=== PATIENT | male | born 1935 | race Caucasian/White ===

== ENCOUNTER 2025-06-20 10:30 | Inpatient (IN) ==
--- NOTE | 2025-06-20 11:12 | Emergency Department Note ---
Impression & Plan Fall, Elevated troponin, Atrial fibrillation ED Provider Note CHIEF COMPLAINT: Fall with head strike HISTORY OF PRESENTING ILLNESS: Patient is an 89-year-old male presents the emergency department today for complaints of fall with head strike. He states he was in the shower this morning when he bent over to sisal picker a washcloth and his feet slipped out from behind him. He fell forward hitting his head on the wall and landing onto his knees. He was unfortunately unable to get himself up by himself and his son had to come over to assist him. At that time he was able to get up and ambulate. His current complaints are pain at the site of impact on the forehead, and lumbar back pain. He rates his pain as a 3/10. He does have a significant history of osteoporosis, orthopedic injuries and replacements, surgeries. He also has a history of A-fib and is on Eliquis and metoprolol, hypertension, hyperlipidemia, BPH. He denies loss of consciousness, lightheadedness, dizziness, blurred vision, headache. However is unsure if lightheadedness was involved when he fell. He denies any numbness or tingling in any of the 4 extremities. He denies chest pain, sob, breathing difficulties, abdominal pain, headache, fevers/chills, blood in stool or urine. REVIEW OF SYSTEMS: See HPI for pertinent positives and pertinent negatives. ALLERGIES: See below MEDICATIONS: See below PAST MEDICAL HISTORY: See below PHYSICAL EXAM: VITALS: Vitals are noted on the nurse's note and reviewed by myself. GENERAL: No acute distress, non-diaphoretic. SKIN: There is some minor bruising beginning to the patient's forehead and right cheek. There is an abrasion to the right knee. Capillary reflex less than 2 seconds. HEAD: Normocephalic. No scalp tenderness or step-offs felt. EARS: Bilateral external auditory canals clear without tragus tenderness. Bilateral tympanic membranes pearly [place] without erythema or effusion. No mastoid tenderness bilaterally. No hemotympanum. No pan sign. EYES: Pupils equal round and reactive to light and accommodation. Conjunctivae without injection, sclerae without icterus. Extraocular movements intact. No nystagmus. NOSE: Patent without discharge. No sinus tenderness. No septal hematoma or bleeding. FACE: No facial bone tenderness. Full range of motion of the jaw without tenderness. MOUTH: Mucous membranes moist. Pharynx without erythema or exudate. Uvula midline. Airway patent. Tongue does not deviate. NECK: Supple without nuchal rigidity. Cervical spine is nontender. Full range of motion of the neck without tenderness. HEART: Regular rate and rhythm without murmurs gallops or rubs. LUNGS: Clear to auscultation bilaterally without wheezes, rales or rhonchi. No retractions or accessory muscle use. CHEST: No chest wall tenderness. ABDOMEN: Positive bowel sounds x 4. Normal tympanic percussion. Soft, nontender, without masses or organomegaly. No guarding or rebound tenderness. MUSCULOSKELETAL: No tenderness of the thoracic spine. Mild tenderness to the lumbar spine on the right side on palpation. No tenderness with pelvic rocking. Full range of motion without tenderness to palpation in all extremities. Normal gait. Strength 5/5 throughout. Peripheral pulses 2+. NEURO: Patient was alert and oriented to person place and time. Normal mental status exam. Normal sensation to light and sharp touch. No focal neurological deficits. DIFFERENTIAL DIAGNOSIS: Fracture, subdural hematoma, facial bone fracture, lumbar back injury, lumbar vertebral fracture, among others. ED COURSE AND MEDICAL DECISION MAKING: HISTORY FROM INDEPENDENT HISTORIAN: History was provided by the patient and his son who is at bedside. MONITOR: Continuous quality assurance monitor body: Order was placed for continuous quality assurance monitor body. Patient was placed on the quality assurance monitor body and continuous pulse ox. Patient was noted to be in normal sinus rhythm at an initial rate of 62 bpm per my interpretation. EKG: First EKG at 1211 was interpreted by myself as normal sinus rhythm at a rate of 68 bpm. Second EKG at 1430 showed sinus rhythm with PACs with a rate of 73 bpm. INTERPRETATION OF LABS: I interpreted the labs with full lab results as below in the lab section of this note. Laboratory results pertinent to the emergent complaint are discussed in the MDM section below. The patient was advised to follow up with their PCP and/or specialist(s) for further outpatient monitoring and management of any abnormal results. INTERPRETATION OF IMAGING: Imaging studies were interpreted by myself and read by radiology as per the imaging section of this note. The patient was advised to follow up with their PCP and/or specialist(s) for further outpatient management of any non-emergent abnormal findings. CHRONIC MEDICAL/SOCIAL CONDITIONS AFFECTING CARE: No social concerns were identified as barriers to patients care. EXTERNAL RECORDS REVIEWED: Patient's previous ED records from 01/21/2025 specifically concerning a previous fall. Able to obtain an accurate history and medication list on the patient via previous record. ESCALATION OF CARE CONSIDERED: I considered admission on this patient due to his elevating troponins. CONSULTATIONS: I had a meaningful discussion about this patient with Dr. Motta who agrees with my assessment and the treatment plan. I consulted with cardiology Dr. Reilly and discussed the patient's case. He will plan to see him as an inpatient once admitted. I also consulted with Michelle Hodges and Dr. Caldwell for admission to the hospital. The patient was accepted for admission. SUMMARY: I examined the patient for complaints of a fall with head strike and lumbar back pain. A physical exam and history were performed. Nursing notes, EMR, and medication list were personally reviewed. CBC showed no leukocytosis. Mild anemia of 11.3. No thrombocytopenia. CMP showed no emergent findings. First troponin was 107.6 and second troponin was 279.8. The patient continued to decline any chest pain, shortness of breath, lightheadedness, syncope, headaches, arm numbness or tingling, jaw pain, shoulder pain aside from his normal. CT of the head and facial bones showed no fractures or intracranial abnormalities. X-ray of the lumbar spine showed no acute findings. Chest x- ray showed cardiomegaly with pulmonary vascular congestion. The patient declined any pain medication here in the emergency department originally however when he got back from his lumbar x-ray he did have increased pain to the lumbar region. He was given 1 g of Tylenol IV with improvement in pain and discomfort. I did consult with Dr. Cole from cardiology about the patient's case. I then spoke with Michelle Hodges and Dr. Caldwell for admission to the hospital. I discussed the plan of care with both the patient and his son who both verbalized understanding. They were made aware of all the above results. DIAGNOSIS: Elevated troponins, fall with head strike, atrial fibrillation TREATMENT PLAN/DISCHARGE INSTRUCTIONS: Admit to hospitalist services Past Med/Surg History Problem List (Updated 06/20/25 @ 16:07 by SARA Pineda) Atrial fibrillation (Acute) Elevated troponin (Acute) Fall (Acute) COVID-19 (Acute) Social History Smoking Status: Never smoker Preferred Language: Cameroonian Feels Safe at Home: Yes Allergies Allergies Allergy/AdvReac Type Severity Reaction Status Date / Time No Known Allergies Allergy Verified 07/23/23 21:22 Home Meds Home Medications Medication Instructions Recorded Confirmed aspirin 81 mg tablet,delayed 81 mg PO DAILY 07/23/23 06/20/25 release atorvastatin 20 mg tablet 20 mg PO DAILY 07/23/23 06/20/25 cholecalciferol (vitamin D3) 25 25 mcg PO DAILY 07/23/23 06/20/25 mcg (1,000 unit) capsule (Vitamin D3) duloxetine 30 mg capsule,delayed 0 mg PO DAILY 07/23/23 06/20/25 release metoprolol succinate 25 mg 12.5 mg PO DAILY 07/23/23 06/20/25 tablet,extended release 24 hr pregabalin 25 mg capsule (Lyrica) 0 mg PO HS 07/23/23 06/20/25 tamsulosin 0.4 mg capsule (Flomax) 0 mg PO DAILY 07/23/23 06/20/25 vit C 250 mg-vit E 90 mg-zinc 40 1 tab PO QAM 07/23/23 06/20/25 mg-copper 1 [id number] capsule (PreserVision AREDS-2) apixaban 5 mg tablet (Eliquis) 5 mg PO BID 06/20/25 06/20/25 finasteride 5 mg tablet 5 mg PO DAILY 06/20/25 06/20/25 Results & Data (ED) Vital Signs Vital Signs - 24 hr 06/20/25 10:45 06/20/25 11:29 06/20/25 12:22 Temperature 36.9 C 36.8 C Temperature Source Temporal Artery Scan Oral Pulse Rate 70 66 Pulse Rate [Apical] 69 Respiratory Rate 18 16 Respiratory Effort / Characteristics Non-Labored Spontaneous Respiratory Depth Normal Respiratory Pattern Regular Blood Pressure 118/51 L Blood Pressure [Left Arm] 129/56 L Blood Pressure Mean 73 Blood Pressure Mean [Left Arm] 80 Blood Pressure Position [Left Arm] Pulse Oximetry 96 94 Oxygen Delivery Method Room Air Room Air Sepsis Recent Fever Within 48 Hours No Sepsis New/Unexplained Change in Mental Status N/A Sepsis Action Taken by Nursing No Action Required 06/20/25 13:00 06/20/25 14:00 06/20/25 15:00 Temperature Temperature Source Pulse Rate Pulse Rate [Apical] 61 69 68 Respiratory Rate 17 16 22 Respiratory Effort / Characteristics Respiratory Depth Normal Normal Normal Respiratory Pattern Blood Pressure Blood Pressure [Left Arm] 113/86 137/58 L 127/75 Blood Pressure Mean Blood Pressure Mean [Left Arm] 95 84 92 Blood Pressure Position [Left Arm] Lying Pulse Oximetry 94 94 96 Oxygen Delivery Method Room Air Room Air Room Air Sepsis Recent Fever Within 48 Hours Sepsis New/Unexplained Change in Mental Status Sepsis Action Taken by Nursing Laboratory Data 06/20/25 11:30 06/20/25 11:30 Lab Results 06/20/25 06/20/25 Range/Units 11:30 13:23 WBC 7.56 (4.8-10.8) K/ul RBC 3.92 L (4.70-6.10) M/uL Hgb 11.6 L (14.0-18.0) g/dl Hct 37.0 L (42.0-52.0) % MCV 94.4 (80.0-100.0) fL MCH 29.6 (25.0-34.0) pg MCHC 31.4 L (32.0-36.0) g/dL RDW Std Deviation 49.0 H (36.4-46.3) fL RDW Coeff of Manas 14.2 (11.5-14.5) % Plt Count 147 (130-400) K/uL MPV 11.0 (9.4-12.4) fL Immature Gran % (Auto) 0.4 % Neut % (Auto) 72.2 % Lymph % (Auto) 15.2 % [place] % (Auto) 9.1 % Eos % (Auto) 2.4 % Baso % (Auto) 0.7 % Neut # (Auto) 5.46 (1.40-6.50) K/uL Lymph # (Auto) 1.15 L (1.20-3.40) K/uL [place] # (Auto) 0.69 H (0.11-0.59) K/uL Eos # (Auto) 0.18 (0.00-0.50) K/uL Baso # (Auto) 0.05 (0.00-0.20) K/uL Immature Gran # (Auto) 0.03 (0.01-0.20) K/uL PT 12.7 H (9.0-12.0) Seconds INR 1.2 H (0.9-1.1) APTT 26 (21-31) Seconds PTT Ratio 1.0 Sodium 140 (136-145) mmol/L Potassium 4.7 (3.5-5.1) mmol/L Chloride 106 (98-107) mmol/L Carbon Dioxide 28 (21-32) mmol/L Anion Gap 6 (3-11) BUN 18 (6-23) mg/dl Creatinine 1.06 (0.6-1.4) mg/dl Est Cr Clr Drug Dosing 51.8 ml/min eGFR 67.08 BUN/Creatinine Ratio 17.0 (10-20) Glucose 107 H (70-99(Fasting)) mg/dl Calcium 9.2 (8.6-10.3) mg/dl Total Bilirubin 0.6 (0.2-1.0) mg/dl AST 21 (13-39) U/L ALT 14 (7-52) U/L Alkaline Phosphatase 73 (34-104) U/L Total Creatine Kinase 126 (30-223) U/L Troponin I High Sens 107.6 H* 279.8 H* D (0-20) pg/ml B-Natriuretic Peptide 62 (0-100) pg/ml Total Protein 6.4 (6.0-8.3) gm/dl Albumin 3.6 (3.4-5.0) gm/dl Globulin 2.8 (2.5-4.0) gm/dl Albumin/Globulin Ratio 1.3 (0.9-2) Administered Medications Discontinued Medications Acetaminophen (Ofirmev) 1,000 mg in 100 mls @ 400 mls/hr IV NOW STA Stop: 06/20/25 13:44 Last Infusion: 06/20/25 14:30 Dose: Infused Documented By: Admin: 06/20/25 13:37 Dose: 400 mls/hr Documented By: KAYLEEN Imaging Data Radiologist's Impression: Face CT 06/20/25 11:38 CT SCAN OF THE FACIAL BONES WITHOUT IV CONTRAST CLINICAL HISTORY: Fall. COMPARISON STUDY: Facial bone CT dated 01/21/2025. TECHNIQUE: High-resolution CT scan of the facial bones is performed. Images are reviewed in the axial, sagittal, and coronal planes. IV contrast was not administered for this examination. A dose lowering technique was utilized adhering to the principles of ALARA. CT DOSE: 912.71 mGy.cm FINDINGS: The skeletal structures are osteopenic. There is chronic appearing deformity of the nasal bones. There is no evidence of acute facial bone fracture. The bony orbits are intact and the orbital contents are within normal limits noting bilateral ocular lens implants. The zygomatic arches, nasal bones, and pterygoid plates are preserved. The maxilla and mandible are intact. There are no layering blood products within the paranasal sinuses. There is trace mucosal thickening within the maxillary antra comment a less than sinus, and frontal sinuses. Mild mucosal thickening is noted within the ethmoid and right sphenoid sinuses. There is trace right mastoid effusion. The left mastoid air cells are well pneumatized. The visualized calvarium and upper cervical spine are maintained. Spondylotic change is noted throughout the imaged cervical spine. Partially imaged brain parenchyma is within normal limits. There is atherosclerotic calcification of the carotid bulbs. IMPRESSION: There is no evidence of facial bone fracture. ACT 112: Negative or not required by law. Electronically signed by: Peyman Wilcox M.D. 06/20/2025 12:[address] 06/20/25 11:38 CT SCAN OF THE BRAIN WITHOUT IV CONTRAST CLINICAL HISTORY: Fall COMPARISON STUDY: CT of the brain dated 01/21/2025 TECHNIQUE: Unenhanced axial CT scan of the brain is performed from the vertex to the skull base. Images are reviewed in the axial, sagittal, coronal planes. A dose lowering technique was utilized adhering to the principles of ALARA. FINDINGS: Brain parenchyma: There is age-related involutional change noting mild subcortical and periventricular microangiopathic disease. There is no hemorrhage, mass effect, or evidence of acute territorial ischemia by CT criteria. [place]-white matter differentiation is preserved. No extra-axial fluid collection is seen. Ventricles, sulci, cisterns: Prominent secondary to involutional change. Intracranial vasculature: There is atherosclerotic calcification of the cavernous carotid arteries. Calvarium: Unremarkable. Sinuses and mastoids: There is mild mucosal thickening within the sphenoid and ethmoid sinuses. Trace mucosal thickening is noted in the frontal sinuses. There is a small right mastoid effusion. The left mastoid air cells are well pneumatized. Orbits: The bony orbits are grossly intact. There are bilateral ocular lens implants. IMPRESSION: There is no hemorrhage, mass effect, or evidence of acute territorial ischemia by CT criteria. ACT 112: Negative or not required by law. Electronically signed by: Peyman Wilcox M.D. 06/20/2025 12:21 PM Lumbar Spine X-Ray 06/20/25 11:38 LUMBAR SPINE 3 VIEWS CLINICAL HISTORY: Fall. Low back pain. FINDINGS: 3 views of the lumbar spine are obtained. No prior studies are available for comparison at the time of dictation. The skeletal structures are osteopenic. There is no radiographic evidence of fracture or malalignment. Vertebral body height is maintained. There is a 14 mm of anterolisthesis at L4- L5. Alignment is otherwise preserved. Large anterior and lateral marginal osteophytes are seen throughout. There is straightening of the lumbar lordosis. The transverse and spinous processes are intact. Advanced facet arthropathies in the mid to lower lumbar region. There is moderate to severe disc space narrowing at L1-L2, L2-L3, and L3-L4. Large posterior disc osteophyte complexes are seen at these levels. Significant endplate sclerosis is seen at L1-L2 and L3-L4. The visualized bony pelvis appears intact. Degenerative sclerosis is seen in the sacroiliac joints. There is a nonobstructed abdominal bowel gas pattern. There is a prostatic calcification and ectasia of the abdominal aorta. Cholecystectomy clips are noted in the right upper quadrant. There are also clips in the right lower quadrant. IMPRESSION: 1. There is no radiographic evidence of fracture or malalignment involving the lumbar spine. 2. Osteopenia and spondylotic change as above. ACT 112: Negative or not required by law. Electronically signed by: Peyman Wilcox M.D. 06/20/2025 12:55 PM Chest X-Ray 06/20/25 12:30 SINGLE VIEW CHEST CLINICAL HISTORY: Chest pain. FINDINGS: An AP, portable, upright chest radiograph is compared to study dated 07/23/2023. The heart is enlarged and atherosclerotic calcification of the thoracic aortic. There is pulmonary gastric congestion. Atelectasis is noted at the lung bases. No large pleural effusion or pneumothorax is seen. The skeletal structures are osteopenic. The bony thorax is grossly intact. Advanced arthritic change is noted in the shoulders, right side greater than left. Calcified joint bodies are noted on the right. IMPRESSION: Cardiomegaly with pulmonary vascular congestion. Radiographic follow-up to resolution is recommended. ACT 112: Negative or not required by law. Electronically signed by: Peyman Wilcox M.D. 06/20/2025 12:57 PM Discharge Plan Visit Data Chief Complaint: Fall Stated Complaint: FALL/ HIT HEAD ED Provider: Argelia Motta ED Midlevel Provider: Ayana Lopez Discharge Problem: Fall, Elevated troponin, Atrial fibrillation Patient Disposition: Admitted As Inpatient Condition: Good Forms Stand Alone Forms: My [facility] Prescriptions Prescriptions: No Action atorvastatin 20 mg Tablet 20 mg PO DAILY aspirin 81 mg Tablet,Delayed Release (Dr/Ec) 81 mg PO DAILY Patient Comments: 06/20- otc unable to verify tamsulosin [Flomax] 0.4 mg Capsule 0 mg PO DAILY Patient Comments: 06/20- no fill history unable to verify metoprolol succinate 25 mg Tablet Extended Release 24 Hr 12.5 mg PO DAILY cholecalciferol (vitamin D3) [Vitamin D3] 25 mcg (1,000 unit) Capsule 25 mcg PO DAILY Patient Comments: 06/20- otc unable to verify duloxetine 30 mg Capsule,Delayed Release(Dr/Ec) 0 mg PO DAILY Patient Comments: last filled 08/07/24 90 day supply #90 pregabalin [Lyrica] 25 mg Capsule 0 mg PO HS Patient Comments: 06/20- no fill history unable to verify PreserVision AREDS-2 250-90-40-1 mg Capsule 1 tab PO QAM Patient Comments: 06/20- otc unable to verify finasteride 5 mg tablet 5 mg PO DAILY Eliquis 5 mg tablet 5 mg PO BID Referrals Referrals: Patti Zuniga DO [Primary Care Provider] - Discharge Problem: Fall Qualifiers: Encounter type: initial encounter Qualified Code(s): W19.XXXA - Unspecified fall, initial encounter Atrial fibrillation Qualifiers: Atrial fibrillation type: unspecified Qualified Code(s): I48.91 - Unspecified atrial fibrillation
--- NOTE | 2025-06-20 11:16 | Emergency Department Note ---
ED Visit Note I was consulted by the Advanced Practice Provider, SARA Padilla. I performed a substantive portion of the visit. This includes aspects of: History: Patient is an 89-year-old male presenting after a fall. Patient reports that he was in the shower when he was reaching down and got a little lightheaded and lost his footing, falling forward into the shower. He denies loss of consciousness. He has a history of A-fib and takes Eliquis. Denies any chest pain or shortness of breath. MDM: - Laboratory workup interpreted by myself showed normal WBC; elevated INR (1.2); stable electrolytes; elevated troponin (107.6); normal BNP - Repeat troponin continues to rise and is elevated at 279.8. - CXR image reviewed by myself showed some pulmonary vascular congestion, per my interpretation. Radiology notes cardiomegaly with pulmonary vascular congestion. - Xray lumbar spine wo contrast negative for acute fracture. - CT head wo contrast negative for acute injury - CT face wo contrast negative for acute pathology - Given patient's rising troponin levels, will admit to hospitalist service. Troponins were obtained secondary to the patient feeling lightheaded. - Patient to be admitted to the inpatient hospitalist service for further evaluation and management .
[2025-06-20 11:53] LABS: Hematocrit (blood only) 37.0 % (42.0-52.0); Hemoglobin 11.6 g/dl (14.0-18.0); Immature Granulocytes # (auto) 0.03 K/uL (0.01-0.20); Immature Granulocytes % (auto) 0.4 %; Mean Corpuscular Hemoglobin 29.6 pg (25.0-34.0); Mean Corpuscular Volume 94.4 fL (80.0-100.0); Platelet Count 147 K/uL (130-400); RDW Standard Deviation 49.0 fL (36.4-46.3); Red Blood Count 3.92 M/uL (4.70-6.10); White Blood Count 7.56 K/ul (4.8-10.8)
[2025-06-20 12:16] LABS: Alanine Aminotransferase 14.0 U/L (7-52); Albumin Globulin Ratio 1.3 (0.9-2); Alkaline Phosphatase 73.0 U/L (34-104); Anion Gap 6.0 (3-11); Bilirubin,Total 0.6 mg/dl (0.2-1.0); Blood Urea Nitrogen 18.0 mg/dl (6-23); Calcium 9.2 mg/dl (8.6-10.3); Carbon Dioxide 28.0 mmol/L (21-32); Chloride 106.0 mmol/L (98-107); Creatinine Clr Calc Pharmacy 51.8 ml/min; Globulin 2.8 gm/dl (2.5-4.0); Glucose 107.0 mg/dl (70-99(Fasting)); Potassium 4.7 mmol/L (3.5-5.1); Sodium 140.0 mmol/L (136-145); Total Protein 6.4 gm/dl (6.0-8.3)
--- NOTE | 2025-06-20 12:23 | CT Scan Report ---
CT SCAN OF THE BRAIN WITHOUT IV CONTRAST CLINICAL HISTORY: Fall COMPARISON STUDY: CT of the brain dated 01/21/2025 TECHNIQUE: Unenhanced axial CT scan of the brain is performed from the vertex to the skull base. Imag es are reviewed in the axial, sagittal, coronal planes. A dose lowering technique was utilized adheri ng to the principles of ALARA. FINDINGS: Brain parenchyma: There is age-related involutional change noting mild subcortical and periventricula r microangiopathic disease. There is no hemorrhage, mass effect, or evidence of acute territorial isc hemia by CT criteria. [place]-white matter differentiation is preserved. No extra-axial fluid collection is seen. Ventricles, sulci, cisterns: Prominent secondary to involutional change. Intracranial vasculature: There is atherosclerotic calcification of the cavernous carotid arteries. Calvarium: Unremarkable. Sinuses and mastoids: There is mild mucosal thickening within the sphenoid and ethmoid sinuses. Trace mucosal thickening is noted in the frontal sinuses. There is a small right mastoid effusion. The lef t mastoid air cells are well pneumatized. Orbits: The bony orbits are grossly intact. There are bilateral ocular lens implants. IMPRESSION: There is no hemorrhage, mass effect, or evidence of acute territorial ischemia by CT adriana warren. ACT 112: Negative or not required by law. Electronically signed by: Peyman Wilcox M.D. 06/20/2025 12:21 PM
[2025-06-20 12:31] LABS: INR 1.2 (0.9-1.1); Partial Thromboplastin Time 26 Seconds (21-31); Prothrombin Time 12.7 Seconds (9.0-12.0)
--- NOTE | 2025-06-20 12:45 | CT Scan Report ---
CT SCAN OF THE FACIAL BONES WITHOUT IV CONTRAST CLINICAL HISTORY: Fall. COMPARISON STUDY: Facial bone CT dated 01/21/2025. TECHNIQUE: High-resolution CT scan of the facial bones is performed. Images are reviewed in the axia l, sagittal, and coronal planes. IV contrast was not administered for this examination. A dose lower ing technique was utilized adhering to the principles of ALARA. CT DOSE: 912.71 mGy.cm FINDINGS: The skeletal structures are osteopenic. There is chronic appearing deformity of the nasal b ones. There is no evidence of acute facial bone fracture. The bony orbits are intact and the orbital contents are within normal limits noting bilateral ocular lens implants. The zygomatic arches, nasal bones, and pterygoid plates are preserved. The maxilla and mandible are intact. There are no layering blood products within the paranasal sinuses. There is trace mucosal thickening within the maxillary antra comment a less than sinus, and frontal sinuses. Mild mucosal thickening is noted within the eth moid and right sphenoid sinuses. There is trace right mastoid effusion. The left mastoid air cells ar e well pneumatized. The visualized calvarium and upper cervical spine are maintained. Spondylotic lucia nge is noted throughout the imaged cervical spine. Partially imaged brain parenchyma is within normal limits. There is atherosclerotic calcification of the carotid bulbs. IMPRESSION: There is no evidence of facial bone fracture. ACT 112: Negative or not required by law. Electronically signed by: Peyman Wilcox M.D. 06/20/2025 12:43 PM
[2025-06-20 12:57] LABS: Creatine Kinase 126.0 U/L (30-223)
--- NOTE | 2025-06-20 12:57 | XRay Report ---
LUMBAR SPINE 3 VIEWS CLINICAL HISTORY: Fall. Low back pain. FINDINGS: 3 views of the lumbar spine are obtained. No prior studies are available for comparison at the time of dictation. The skeletal structures are osteopenic. There is no radiographic evidence of fracture or malalignment. Vertebral body height is maintained. There is a 14 mm of anterolisthesis at L4-L5. Alignment is otherwise preserved. Large anterior and lateral marginal osteophytes are seen th roughout. There is straightening of the lumbar lordosis. The transverse and spinous processes are int act. Advanced facet arthropathies in the mid to lower lumbar region. There is moderate to severe disc space narrowing at L1-L2, L2-L3, and L3-L4. Large posterior disc osteophyte complexes are seen at th carter levels. Significant endplate sclerosis is seen at L1-L2 and L3-L4. The visualized bony pelvis imelda ears intact. Degenerative sclerosis is seen in the sacroiliac joints. There is a nonobstructed abdomi nal bowel gas pattern. There is a prostatic calcification and ectasia of the abdominal aorta. Cholecy stectomy clips are noted in the right upper quadrant. There are also clips in the right lower quadran t. IMPRESSION: 1. There is no radiographic evidence of fracture or malalignment involving the lumbar spine. 2. Osteopenia and spondylotic change as above. ACT 112: Negative or not required by law. Electronically signed by: Peyman Wilcox M.D. 06/20/2025 12:55 PM
--- NOTE | 2025-06-20 12:58 | XRay Report ---
SINGLE VIEW CHEST CLINICAL HISTORY: Chest pain. FINDINGS: An AP, portable, upright chest radiograph is compared to study dated 07/23/2023. The heart is enlarged and atherosclerotic calcification of the thoracic aortic. There is pulmonary gastric conges tion. Atelectasis is noted at the lung bases. No large pleural effusion or pneumothorax is seen. The skeletal structures are osteopenic. The bony thorax is grossly intact. Advanced arthritic change is n oted in the shoulders, right side greater than left. Calcified joint bodies are noted on the right. IMPRESSION: Cardiomegaly with pulmonary vascular congestion. Radiographic follow-up to resolution is recommended. ACT 112: Negative or not required by law. Electronically signed by: Peyman Wilcox M.D. 06/20/2025 12:57 PM
[2025-06-20] MEDS: ACETAMINOPHEN 1,000 MG/100 ML VIAL IV STA (13:37)
--- NOTE | 2025-06-20 15:01 | History & Physical Report ---
Date of Service June 20, 2025 Assessment & Plan (1) Fall: (2) Elevated troponin: (3) Atrial fibrillation: Plan The patient is an 89-year-old male who presented to the ED on 06/20/2025 s/p mechanical fall found to have an elevated troponin Mechanical fall: No acute injuries, PT/OT, check orthostatic BPs Elevated troponin: Unclear etiology, no EKG changes, no chest pain on exam or shortness of breath Does report some intermittent nausea, check echo, consult cardiology Telemetry monitoring, daily EKGs Hx AF on AC/HLD: Continue metoprolol/Eliquis/aspirin/statin Hx chronic back pain: Continue Cymbalta, Tylenol as needed Hx BPH: Continue finasteride A total of 60 minutes were spent on chart review/reviewing diagnostic data/facilitating plan of care/discussion with consultants Full code DVT prophylaxis: Eliquis History of Present Illness Chief Complaint: Fall Primary Care Provider: Patti Zuniga DO The patient is a 89-year-old male with a past medical history of atrial fibrillation, aortic valve stenosis, HLD, vitamin D deficiency, chronic lower back pain, BPH who presents to the ED on 07/17/2025 with complaints of a mechanical fall earlier today. Patient reports bending over while he is in the shower to reach/and he fell forward, his face hitting the side of the bathtub. He denies any loss of consciousness. Denies any dizziness or chest pain or shortness of breath. Denies any history of syncope. Does report a history of orthostatic hypotension which she was previously on Flomax for that has been discontinued. Does report some nausea intermittently today. But denies any vomiting/abdominal pain/diarrhea. Denies any fever/chills. On arrival to the ED, labs remarkable for hemoglobin 11.6, initial troponin 107, repeat 279 EKG without acute changes Chest x-ray shows cardiomegaly with pulmonary vascular congestion Head CT negative Facial CT negative Lumbar spine negative The patient will be admitted for further workup for elevated troponin Allergies Allergy/AdvReac Type Severity Reaction Status Date / Time No Known Allergies Allergy Verified 07/23/23 21:22 Home Medications Medication Instructions Recorded Confirmed Type aspirin 81 mg tablet,delayed 81 mg PO DAILY 07/23/23 06/20/25 History release atorvastatin 20 mg tablet 20 mg PO DAILY 07/23/23 06/20/25 History cholecalciferol (vitamin D3) 25 25 mcg PO DAILY 07/23/23 06/20/25 History mcg (1,000 unit) capsule (Vitamin D3) duloxetine 30 mg capsule,delayed 0 mg PO DAILY 07/23/23 06/20/25 History release metoprolol succinate 25 mg 12.5 mg PO DAILY 07/23/23 06/20/25 History tablet,extended release 24 hr pregabalin 25 mg capsule (Lyrica) 0 mg PO HS 07/23/23 06/20/25 History tamsulosin 0.4 mg capsule (Flomax) 0 mg PO DAILY 07/23/23 06/20/25 History vit C 250 mg-vit E 90 mg-zinc 40 1 tab PO QAM 07/23/23 06/20/25 History mg-copper 1 [id number] capsule (PreserVision AREDS-2) apixaban 5 mg tablet (Eliquis) 5 mg PO BID 06/20/25 06/20/25 History finasteride 5 mg tablet 5 mg PO DAILY 06/20/25 06/20/25 History Past Med/Surg History Problem List (Updated 06/20/25 @ 16:07 by SARA Pineda) Atrial fibrillation (Acute) Elevated troponin (Acute) Fall (Acute) COVID-19 (Acute) Social History Smoking Status: Never smoker Preferred Language: Estonian Feels Safe at Home: Yes Review of Systems Review of Systems: All systems reviewed & are unremarkable except as noted in HPI & below Physical Exam Constitutional: WD/WN, vitals as above Eyes: PERRL, conjunctivae normal, anicteric sclerae (Facial bruising over ri ght forehead) ENMT: external ear and nose normal, oropharynx normal Neck: trachea midline, no thyromegaly Respiratory: normal respiratory effort, lungs clear to auscultation Cardiovascular: RRR, no murmur, no edema Gastrointestinal (Abdomen): normal bowel sounds, soft, nontender, no hepatosplenomegaly Musculoskeletal: no cyanosis or clubbing, extremities motor strength 5/5 Neurologic: PERRL, EOMI, accommodation nl, no face palsy, no dysarthria Psychiatric: A+Ox3, euthymic affect Lymphatic: no cervical or axillary lymphadenopathy Results & Data Results & Data Vital Signs (Past 12 Hours) Vital Signs Temp Pulse Pulse Resp BP BP Pulse Ox 06/20/25 14:00 69 16 137/58 L 94 06/20/25 13:00 61 17 113/86 94 06/20/25 12:22 66 06/20/25 11:29 36.8 C 69 16 129/56 L 94 06/20/25 10:45 36.9 C 70 18 118/51 L 96 O2 Del Method 06/20/25 14:00 Room Air 06/20/25 13:00 Room Air 06/20/25 12:22 06/20/25 11:29 Room Air 06/20/25 10:45 Room Air Diagnostic Findings Laboratory Results WBC 7.56 K/ul (4.8-10.8) 06/20/25 11:30 RBC 3.92 M/uL (4.70-6.10) L 06/20/25 11:30 Hgb 11.6 g/dl (14.0-18.0) L 06/20/25 11:30 Hct 37.0 % (42.0-52.0) L 06/20/25 11:30 MCV 94.4 fL (80.0-100.0) 06/20/25 11:30 MCH 29.6 pg (25.0-34.0) 06/20/25 11:30 MCHC 31.4 g/dL (32.0-36.0) L 06/20/25 11:30 RDW Std Deviation 49.0 fL (36.4-46.3) H 06/20/25 11:30 RDW Coeff of Manas 14.2 % (11.5-14.5) 06/20/25 11:30 Plt Count 147 K/uL (130-400) 06/20/25 11:30 MPV 11.0 fL (9.4-12.4) 06/20/25 11:30 Immature Gran % (Auto) 0.4 % 06/20/25 11:30 Neut % (Auto) 72.2 % 06/20/25 11:30 Lymph % (Auto) 15.2 % 06/20/25 11:30 Rice % (Auto) 9.1 % 06/20/25 11:30 Eos % (Auto) 2.4 % 06/20/25 11:30 Baso % (Auto) 0.7 % 06/20/25 11:30 Neut # (Auto) 5.46 K/uL (1.40-6.50) 06/20/25 11:30 Lymph # (Auto) 1.15 K/uL (1.20-3.40) L 06/20/25 11:30 Rice # (Auto) 0.69 K/uL (0.11-0.59) H 06/20/25 11:30 Eos # (Auto) 0.18 K/uL (0.00-0.50) 06/20/25 11:30 Baso # (Auto) 0.05 K/uL (0.00-0.20) 06/20/25 11:30 Immature Gran # (Auto) 0.03 K/uL (0.01-0.20) 06/20/25 11:30 PT 12.7 Seconds (9.0-12.0) H 06/20/25 11:30 INR 1.2 (0.9-1.1) H 06/20/25 11:30 APTT 26 Seconds (21-31) 06/20/25 11:30 PTT Ratio 1.0 06/20/25 11:30 Sodium 140 mmol/L (136-145) 06/20/25 11:30 Potassium 4.7 mmol/L (3.5-5.1) 06/20/25 11:30 Chloride 106 mmol/L (98-107) 06/20/25 11:30 Carbon Dioxide 28 mmol/L (21-32) 06/20/25 11:30 Anion Gap 6 (3-11) 06/20/25 11:30 BUN 18 mg/dl (6-23) 06/20/25 11:30 Creatinine 1.06 mg/dl (0.6-1.4) 06/20/25 11:30 Est Cr Clr Drug Dosing 51.8 ml/min 06/20/25 11:30 eGFR 67.08 06/20/25 11:30 BUN/Creatinine Ratio 17.0 (10-20) 06/20/25 11:30 Glucose 107 mg/dl (70-99(Fasting)) H 06/20/25 11:30 Calcium 9.2 mg/dl (8.6-10.3) 06/20/25 11:30 Total Bilirubin 0.6 mg/dl (0.2-1.0) 06/20/25 11:30 AST 21 U/L (13-39) 06/20/25 11:30 ALT 14 U/L (7-52) 06/20/25 11:30 Alkaline Phosphatase 73 U/L (34-104) 06/20/25 11:30 Total Creatine Kinase 126 U/L (30-223) 06/20/25 11:30 Troponin I High Sens 279.8 pg/ml (0-20) H* D 06/20/25 13:23 B-Natriuretic Peptide 62 pg/ml (0-100) 06/20/25 11:30 Total Protein 6.4 gm/dl (6.0-8.3) 06/20/25 11:30 Albumin 3.6 gm/dl (3.4-5.0) 06/20/25 11:30 Globulin 2.8 gm/dl (2.5-4.0) 06/20/25 11:30 Albumin/Globulin Ratio 1.3 (0.9-2) 06/20/25 11:[address] 06/20/25 11:38 CT SCAN OF THE FACIAL BONES WITHOUT IV CONTRAST CLINICAL HISTORY: Fall. COMPARISON STUDY: Facial bone CT dated 01/21/2025. TECHNIQUE: High-resolution CT scan of the facial bones is performed. Images are reviewed in the axial, sagittal, and coronal planes. IV contrast was not administered for this examination. A dose lowering technique was utilized adhering to the principles of ALARA. CT DOSE: 912.71 mGy.cm FINDINGS: The skeletal structures are osteopenic. There is chronic appearing deformity of the nasal bones. There is no evidence of acute facial bone fracture. The bony orbits are intact and the orbital contents are within normal limits noting bilateral ocular lens implants. The zygomatic arches, nasal bones, and pterygoid plates are preserved. The maxilla and mandible are intact. There are no layering blood products within the paranasal sinuses. There is trace mucosal thickening within the maxillary antra comment a less than sinus, and frontal sinuses. Mild mucosal thickening is noted within the ethmoid and right sphenoid sinuses. There is trace right mastoid effusion. The left mastoid air cells are well pneumatized. The visualized calvarium and upper cervical spine are maintained. Spondylotic change is noted throughout the imaged cervical spine. Partially imaged brain parenchyma is within normal limits. There is atherosclerotic calcification of the carotid bulbs. IMPRESSION: There is no evidence of facial bone fracture. ACT 112: Negative or not required by law. Electronically signed by: Peyman Wilcox M.D. 06/20/2025 12:[address] 06/20/25 11:38 CT SCAN OF THE BRAIN WITHOUT IV CONTRAST CLINICAL HISTORY: Fall COMPARISON STUDY: CT of the brain dated 01/21/2025 TECHNIQUE: Unenhanced axial CT scan of the brain is performed from the vertex to the skull base. Images are reviewed in the axial, sagittal, coronal planes. A dose lowering technique was utilized adhering to the principles of ALARA. FINDINGS: Brain parenchyma: There is age-related involutional change noting mild subcortical and periventricular microangiopathic disease. There is no hemorr osmar, mass effect, or evidence of acute territorial ischemia by CT criteria. [place]-white matter differentiation is preserved. No extra-axial fluid collection is seen. Ventricles, sulci, cisterns: Prominent secondary to involutional change. Intracranial vasculature: There is atherosclerotic calcification of the cavernous carotid arteries. Calvarium: Unremarkable. Sinuses and mastoids: There is mild mucosal thickening within the sphenoid and ethmoid sinuses. Trace mucosal thickening is noted in the frontal sinuses. There is a small right mastoid effusion. The left mastoid air cells are well pneumatized. Orbits: The bony orbits are grossly intact. There are bilateral ocular lens implants. IMPRESSION: There is no hemorrhage, mass effect, or evidence of acute territorial ischemia by CT criteria. ACT 112: Negative or not required by law. Electronically signed by: Peyman Wilcox M.D. 06/20/2025 12:21 PM Lumbar Spine X-Ray 06/20/25 11:38 LUMBAR SPINE 3 VIEWS CLINICAL HISTORY: Fall. Low back pain. FINDINGS: 3 views of the lumbar spine are obtained. No prior studies are available for comparison at the time of dictation. The skeletal structures are osteopenic. There is no radiographic evidence of fracture or malalignment. Vertebral body height is maintained. There is a 14 mm of anterolisthesis at L4- L5. Alignment is otherwise preserved. Large anterior and lateral marginal osteophytes are seen throughout. There is straightening of the lumbar lordosis. The transverse and spinous processes are intact. Advanced facet arthropathies in the mid to lower lumbar region. There is moderate to severe disc space narrowing at L1-L2, L2-L3, and L3-L4. Large posterior disc osteophyte complexes are seen at these levels. Significant endplate sclerosis is seen at L1-L2 and L3-L4. The visualized bony pelvis appears intact. Degenerative sclerosis is seen in the sacroiliac joints. There is a nonobstructed abdominal bowel gas pattern. There i s a prostatic calcification and ectasia of the abdominal aorta. Cholecystectomy clips are noted in the right upper quadrant. There are also clips in the right lower quadrant. IMPRESSION: 1. There is no radiographic evidence of fracture or malalignment involving the lumbar spine. 2. Osteopenia and spondylotic change as above. ACT 112: Negative or not required by law. Electronically signed by: Peyman Wilcox M.D. 06/20/2025 12:55 PM Chest X-Ray 06/20/25 12:30 SINGLE VIEW CHEST CLINICAL HISTORY: Chest pain. FINDINGS: An AP, portable, upright chest radiograph is compared to study dated 07/23/2023. The heart is enlarged and atherosclerotic calcification of the thoracic aortic. There is pulmonary gastric congestion. Atelectasis is noted at the lung bases. No large pleural effusion or pneumothorax is seen. The skeletal structures are osteopenic. The bony thorax is grossly intact. Advanced arthritic change is noted in the shoulders, right side greater than left. Calcified joint bodies are noted on the right. IMPRESSION: Cardiomegaly with pulmonary vascular congestion. Radiographic follow-up to resolution is recommended. ACT 112: Negative or not required by law. Electronically signed by: Peyman Wilcox M.D. 06/20/2025 12:57 PM Supervising Physician Co-Signing Physician Notes Patient seen and examined at bedside. Son at bedside. Patient doing ok today. Had mechanical fall in shower, has foot drop, no LOC, some nausea/back pain but no chest pain or SOB. On exam, some ecchymoses noted diffusely throughout arms, legs and face, sarcopenia noted in legs with venous stasis changes, RRR. Significant troponin elevation to 279 without chest pain. ECG reviewed and generally unremarkable. Chest xray with pulmonary congestion. CT head and face with no acute process. Lumbar xray unremarkable. Mechanical fall in setting of type 2 NE vs. NSTEMI (with nausea/back pain as possible anginal equivalent, but has chronic back pain making less likely). Given no current symptoms, will continue eliquis and aspirin for now with cardiology consult in AM. Echo ordered and will trend troponins. Admit to telemetry. PT/OT given mechanical fall and bilateral LE sarcopenia. I have seen and discussed the case with the collaborating advanced practitioner. I agree with the above H&P. I have reviewed and confirmed the patients medical history, the findings on physical examination, and the patients diagnosis and treatment plan with Michelle RUIZ and agree with the information documented. I spent a total of 40 minutes coordinating, documenting, and providing care for this patient excluding time spent in the performance of separately billed services. All of the aforementioned completed outside of collaborating with the assigned advanced practitioner for a full treatment plan. I have reviewed the advanced practitioner's documentation, and I agree with, and take responsibility for the plan of care
[2025-06-20 17:13] VITALS: RESP 18
--- NOTE | 2025-06-20 18:28 | Electrocardiogram Report ---
Test Reason : Blood Pressure : */* mmHG Vent. Rate : 73 BPM Atrial Rate : 73 BPM P-R Int : 206 ms QRS Dur : 82 ms QT Int : 414 ms P-R-T Axes : 94 -10 26 degrees QTcB Int : 456 ms Sinus rhythm with Premature atrial complexes 1st degree AV block Otherwise normal ECG When compared with ECG of 20-Jun-2025 12:11, (unconfirmed) Premature atrial complexes are now Present Confirmed by Pasquale Reilly ([id number]) on 06/20/2025 6:27:49 PM Referred By: REFERRED SELF Confirmed By: Pasquale Reilly
--- NOTE | 2025-06-20 18:30 | Electrocardiogram Report ---
Test Reason : Blood Pressure : */* mmHG Vent. Rate : 68 BPM Atrial Rate : 68 BPM P-R Int : 200 ms QRS Dur : 76 ms QT Int : 406 ms P-R-T Axes : 63 -18 4 degrees QTcB Int : 431 ms Normal sinus rhythm Normal ECG When compared with ECG of 21-Jan-2025 14:55, No significant change was found Confirmed by Pasquale Reilly ([id number]) on 06/20/2025 6:30:02 PM Referred By: Confirmed By: Pasquale Reilly
[2025-06-20] MEDS ORDERED: Heparin IV Adult Wt-Based Low-Dose *NO* INITIAL Bolus Protocol IV STA (18:52)
[2025-06-20 19:22] LABS: Appearance Urine Clear (Clear); Glucose Urine UA Negative (Negative)
[2025-06-20] MEDS: ACETAMINOPHEN 325 MG TAB PO PRN (19:40)
[2025-06-20] MEDS: HEPARIN 25000 UNIT/500 ML D5W 25,000 UNITS/500 ML BAG IV SCH (19:40)
[2025-06-20] MEDS ORDERED: APIXABAN 5 MG TABLET PO SCH (21:00)
[2025-06-21 02:07] LABS: ANTI-Xa, UFH(UnfractionatedHep 0.69 IU/ml (0.3-0.7)
[2025-06-21 06:11] LABS: Hematocrit (blood only) 34.4 % (42.0-52.0); Hemoglobin 11.2 g/dl (14.0-18.0); Immature Granulocytes # (auto) 0.02 K/uL (0.01-0.20); Immature Granulocytes % (auto) 0.3 %; Mean Corpuscular Hemoglobin 30.1 pg (25.0-34.0); Mean Corpuscular Volume 92.5 fL (80.0-100.0); Platelet Count 189 K/uL (130-400); RDW Standard Deviation 47.8 fL (36.4-46.3); Red Blood Count 3.72 M/uL (4.70-6.10); White Blood Count 6.79 K/ul (4.8-10.8)
[2025-06-21 06:33] LABS: Alanine Aminotransferase 12 U/L (7-52); Albumin Globulin Ratio 1.4 (0.9-2); Alkaline Phosphatase 61 U/L (34-104); Anion Gap 6 (3-11); Bilirubin,Total 0.7 mg/dl (0.2-1.0); Blood Urea Nitrogen 16 mg/dl (6-23); Calcium 8.6 mg/dl (8.6-10.3); Carbon Dioxide 27 mmol/L (21-32); Chloride 105 mmol/L (98-107); Creatinine Clr Calc Pharmacy 54.9 ml/min; Globulin 2.5 gm/dl (2.5-4.0); Glucose 98 mg/dl (70-99(Fasting)); Magnesium 2.1 mg/dl (1.7-2.4); Sodium 138 mmol/L (136-145); Total Protein 6.0 gm/dl (6.0-8.3)
[2025-06-21 07:26] VITALS: TEMP 97.7
[2025-06-21 07:48] LABS: Potassium 4.0 mmol/L (3.5-5.1)
[2025-06-21 07:54] LABS: ANTI-Xa, UFH(UnfractionatedHep 0.68 IU/ml (0.3-0.7)
--- NOTE | 2025-06-21 08:36 | Hospitalist Progress Note ---
Date of Service June 21, 2025 Assessment & Plan (1) Fall: (2) Elevated troponin: (3) Atrial fibrillation: Plan The patient is an 89-year-old male who presented to the ED on 06/20/2025 s/p mechanical fall found to have an elevated troponin Mechanical fall Presents after a mechanical fall in the shower Underwent imaging including CT head, face CT, lumbar spine x-ray and chest x-ray which did not show any acute finding EKG shows normal sinus rhythm; no ST or T wave changes Plan to obtain PT OT evaluation Continue telemonitoring Elevated troponin Possible Demand Ischemia EKG on admission showing normal sinus rhythm; no ST or T wave changes High sensitive troponin of 107 on admission; up trended to 393 and down trended Currently on heparin drip; continue aspirin, Lipitor and metoprolol. Cardiology consult for comanagement Hx of Atrial fibrillation: Continue metoprolol/Eliquis; eliquis on hold;currently on heparin Hyperlipidemia- continue on statin Hx chronic back pain: Continue Cymbalta, Tylenol as needed Hx BPH: Continue finasteride Full code DVT prophylaxis: heparin Time spent evaluating patient, direct bedside care, chart review, placing orders, interpretation of diagnostic studies, discussion with consultants, patient, and family members, as well as other required patient management activities is 50 minutes Please note the above document was generated using voice recognition software. It may contain grammatical, syntax or spelling errors. Any formal questions or concerns about the content, text or information contained within the body of this dictation should be directly addressed to the provider for clarification Admission and Anticipated Discharge Date Admission Date: June 20, 2025 Subjective Patient seen and examined at bedside. He is comfortable; not in distress. Denies any chest pain or discomfort. No shortness of breath. He is saturating well on room air. Review of Systems Review of Systems: All systems reviewed & are unremarkable except as noted in Subjective Physical Exam Physical Exam: Constitutional: WD/WN, vitals as above, NAD, sitting up in bed, pleasant, conversing easily Respiratory: normal respiratory effort, lungs clear to auscultation, no wheeze, rales, rhonchi. Normal insp/exp effort, no accessory muscle use Cardiovascular: RRR, no murmur, no edema Vessels: no JVD or carotid bruit Chest: normal inspection of chest Abdomen: normal bowel sounds, soft, nontender, no hepatosplenomegaly Musculoskeletal: no cyanosis or clubbing, extremities motor strength 5/5 Skin: no rashes, warm and dry normal turgor Neurologic: PERRL, EOMI, accommodation nl, no face palsy, no dysarthria CN's II- XI intact bilaterally and moves all extremities Psychiatric: A+Ox3, euthymic affect Results & Data Results & Data Vital Signs (Past 12 Hours) Vital Signs Temp Pulse Pulse Resp BP Pulse Ox O2 Del Method 06/21/25 07:26 36.5 C 59 L 18 131/79 96 Room Air 06/21/25 03:00 36.4 C L 62 18 165/61 H 99 Room Air 06/20/25 23:01 61 06/20/25 22:24 36.4 C L 59 L 18 128/74 97 Room Air (1) Fall Encounter type: initial encounter Qualified Code(s): W19.XXXA - Unspecified fall, initial encounter (3) Atrial fibrillation Atrial fibrillation type: unspecified Qualified Code(s): I48.91 - Unspecified atrial fibrillation
--- NOTE | 2025-06-21 09:29 | Cardiology Consultation ---
Date of Consultation June 21, 2025 Assessment & Plan (1) Fall: (2) Acute heart failure with preserved ejection fraction: (3) Elevated troponin: (4) PAC (premature atrial contraction): Plan Admitted with mechanical fall. Mild troponin elevation likely secondary to heart failure with preserved ejection fraction and demand ischemia. Echocardiogram with evidence of hypertensive heart disease and borderline hyperdynamic LV function. Recommend 20 mg IV furosemide x 1 now. IV heparin may be discontinued with resumption of oral apixaban. Continue atorvastatin and metoprolol succinate. Consider addition of low-dose diuretic therapy at discharge. Findings/recommendations discussed with patient's son via telephone. I spent a total of 60 minutes on the date of service in preparation, delivery, and documentation of the care provided to this patient, excluding any time spent in the performance of separately billed services. Jairo Salomon DO, [facility] History of Present Illness Reason for Consultation: elevated trop Requesting Physician: Michelle RUIZ Attending Physician: Neymar Stevens MD History of Present Illness 89-year-old male with history of atherosclerotic cardiovascular disease, paroxysmal atrial fibrillation, atypical atrial flutter, and borderline resting hypotension presents with mechanical fall. Patient reports bending forward while in the shower causing him to fall forward striking his face on the bathtub. Contacted his son who came to the home to help get him out of the tub and brought him to the ER. Denies any loss of consciousness. No chest discomfort or unusual shortness of breath. No history of syncope or near syncope. History of orthostatic hypotension related to Flomax. Currently resting comfortably. Denies chest pain or shortness of breath. Remains in sinus rhythm on telemetry with occasional PACs. No recurrent atrial fibrillation. Preliminary review of bedside echocardiogram demonstrates moderate to severe left ventricular hypertrophy, normal wall motion, moderate aortic valve sclerosis with borderline mild aortic stenosis. Recent medication changes. Denies signs/symptoms of GI/ blood loss. Offers no other concerns/complaints Allergies Allergy/AdvReac Type Severity Reaction Status Date / Time No Known Allergies Allergy Verified 07/23/23 21:22 Home Medications Medication Instructions Recorded Confirmed Type aspirin 81 mg tablet,delayed 81 mg PO DAILY 07/23/23 06/20/25 History release atorvastatin 20 mg tablet 20 mg PO DAILY 07/23/23 06/20/25 History cholecalciferol (vitamin D3) 25 25 mcg PO DAILY 07/23/23 06/20/25 History mcg (1,000 unit) capsule (Vitamin D3) duloxetine 30 mg capsule,delayed 0 mg PO DAILY 07/23/23 06/20/25 History release metoprolol succinate 25 mg 12.5 mg PO DAILY 07/23/23 06/20/25 History tablet,extended release 24 hr pregabalin 25 mg capsule (Lyrica) 0 mg PO HS 07/23/23 06/20/25 History tamsulosin 0.4 mg capsule (Flomax) 0 mg PO DAILY 07/23/23 06/20/25 History vit C 250 mg-vit E 90 mg-zinc 40 1 tab PO QAM 07/23/23 06/20/25 History mg-copper 1 [id number] capsule (PreserVision AREDS-2) apixaban 5 mg tablet (Eliquis) 5 mg PO BID 06/20/25 06/20/25 History finasteride 5 mg tablet 5 mg PO DAILY 06/20/25 06/20/25 History Patient History Social History Smoking Status: Never smoker Hx Alcohol Use: No Hx Substance Use: No Preferred Language: Uzbek Communication Ability: Effective Graduate Nurse Required: No Beliefs That Will Affect Care: None Current Living Situation: Spouse Other Information That Helps Us Care for You: No Feels Safe at Home: Yes Assistive Devices: Glasses and Hearing Aid - Bilateral Review of Systems Review of Systems: All systems reviewed & are unremarkable except as noted in Subjective Physical Exam Constitutional: well nourished; no acute distress Respiratory: no respiratory distress, no labored breathing and no retractions Auscultation: + crackles (Bases bilaterally); no wheezes Cardiovascular: Rate/Rhythm: regular rate and regular rhythm Heart Sounds: normal S1, normal S2 and + murmur (2/6 low pitched, early peaking systolic ejection murmur heard best at base) Gastrointestinal (Abdomen): Inspection/Auscultation: abdomen normal to inspection and normal bowel sounds; abdomen not distended Neurologic: CN's II-XI intact bilaterally and moves all extremities Results & Data Vital Signs (Past 12 Hours) Vital Signs Temp Pulse Pulse Resp BP Pulse Ox O2 Del Method 06/21/25 07:26 36.5 C 59 L 18 131/79 96 Room Air 06/21/25 03:00 36.4 C L 62 18 165/61 H 99 Room Air 06/20/25 23:01 61 06/20/25 22:24 36.4 C L 59 L 18 128/74 97 Room Air Laboratory Results Cardiac Enzymes 06/20/25 06/20/25 06/20/25 Range/Units 11:30 13:23 17:21 AST 21 (13-39) U/L Troponin I High Sens 107.6 H* 279.8 H* D 393.3 H* D (0-20) pg/ml B-Natriuretic Peptide 62 (0-100) pg/ml 06/20/25 06/21/25 06/21/25 Range/Units 22:51 05:40 07:18 AST TNP 22 (13-39) U/L Troponin I High Sens 375.9 H* (0-20) pg/ml B-Natriuretic Peptide (0-100) pg/ml Coagulation 06/20/25 Range/Units 11:30 PT 12.7 H (9.0-12.0) Seconds APTT 26 (21-31) Seconds B-Natriuretic Peptide 62 (0-100) pg/ml CBC 06/20/25 06/21/25 Range/Units 11:30 05:40 WBC 7.56 6.79 (4.8-10.8) K/ul RBC 3.92 L 3.72 L (4.70-6.10) M/uL Hgb 11.6 L 11.2 L (14.0-18.0) g/dl Hct 37.0 L 34.4 L (42.0-52.0) % Plt Count 147 189 (130-400) K/uL Neut # (Auto) 5.46 3.64 (1.40-6.50) K/uL Lymph # (Auto) 1.15 L 2.04 (1.20-3.40) K/uL Bartholomew # (Auto) 0.69 H 0.70 H (0.11-0.59) K/uL Eos # (Auto) 0.18 0.33 (0.00-0.50) K/uL Baso # (Auto) 0.05 0.06 (0.00-0.20) K/uL Comprehensive Metabolic Panel 06/20/25 06/21/25 06/21/25 Range/Units 11:30 05:40 07:18 Sodium 140 138 (136-145) mmol/L Potassium 4.7 TNP 4.0 (3.5-5.1) mmol/L Chloride 106 105 (98-107) mmol/L Carbon Dioxide 28 27 (21-32) mmol/L BUN 18 16 (6-23) mg/dl Creatinine 1.06 1.00 (0.6-1.4) mg/dl Glucose 107 H 98 (70-99(Fasting)) mg/dl Calcium 9.2 8.6 (8.6-10.3) mg/dl AST 21 TNP 22 (13-39) U/L ALT 14 12 (7-52) U/L Alkaline Phosphatase 73 61 (34-104) U/L Total Protein 6.4 6.0 (6.0-8.3) gm/dl Albumin 3.6 3.5 (3.4-5.0) gm/dl Intake and Output 06/20/25 06/21/25 06/21/25 22:59 06:59 14:59 Intake Total 100 / 200 Output Total 100 / 100 Balance 0 / 100 Intake: Oral 100 / 100 Output: Urine 100 / 100 Other: Other Intake Source NPO # Unmeasured Voids 1 1 Weight 98 kg 97.8 kg Weight Measurement Method Standing Scale Built in [facility] PG Care Time/CCT Total # of Minutes Spent Total Time Spent with Patient: Total time spent is greater than 50% in coordination of care (as documented) at patient's floor/unit and/or counseling patient: Coding Level of Care Code 05997 INT INP/OBS CARE 3/75MIN Diagnoses Fall W19.XXXA Encounter type: initial encounter Acute heart failure with preserved ejection fraction I50.31 Elevated troponin R79.89 PAC (premature atrial contraction) I49.1 (1) Fall Encounter type: initial encounter Qualified Code(s): W19.XXXA - Unspecified fall, initial encounter
[2025-06-21] MEDS: FINASTERIDE 5 MG TAB PO SCH (09:38)
[2025-06-21] MEDS: ASPIRIN 81 MG ECTAB PO SCH (09:39)
[2025-06-21] MEDS: CHOLECALCIFEROL 25 MCG (1000 UNITS) TAB PO SCH (09:39)
[2025-06-21] MEDS: ATORVASTATIN 20 MG TAB PO SCH (09:39)
[2025-06-21] MEDS: METOPROLOL SUCC 25MG EXT REL TAB PO SCH (09:46)
[2025-06-21 11:20] VITALS: BP 134/66; PULSE 58; O2SAT 95
[2025-06-21] MEDS: APIXABAN 5 MG TABLET PO SCH (11:26)
[2025-06-21] MEDS: FUROSEMIDE INJ 20 MG/2 ML VIAL IV ONE (11:26)
--- NOTE | 2025-06-21 13:34 | Discharge Summary ---
Date of Service June 21, 2025 Admission HPI Per Admitting Provider The patient is a 89-year-old male with a past medical history of atrial fibrillation, aortic valve stenosis, HLD, vitamin D deficiency, chronic lower back pain, BPH who presents to the ED on 07/17/2025 with complaints of a mechanical fall earlier today. Patient reports bending over while he is in the shower to reach/and he fell forward, his face hitting the side of the bathtub. He denies any loss of consciousness. Denies any dizziness or chest pain or shortness of breath. Denies any history of syncope. Does report a history of orthostatic hypotension which she was previously on Flomax for that has been discontinued. Does report some nausea intermittently today. But denies any vomiting/abdominal pain/diarrhea. Denies any fever/chills. On arrival to the ED, labs remarkable for hemoglobin 11.6, initial troponin 107, repeat 279 EKG without acute changes Chest x-ray shows cardiomegaly with pulmonary vascular congestion Head CT negative Facial CT negative Lumbar spine negative The patient will be admitted for further workup for elevated troponin Admission Exam Per Admitting Provider Constitutional: WD/WN, vitals as above Eyes: PERRL, conjunctivae normal, anicteric sclerae (Facial bruising over right forehead) ENMT: external ear and nose normal, oropharynx normal Neck: trachea midline, no thyromegaly Respiratory: normal respiratory effort, lungs clear to auscultation Cardiovascular: RRR, no murmur, no edema Gastrointestinal (Abdomen): normal bowel sounds, soft, nontender, no hepatosplenomegaly Musculoskeletal: no cyanosis or clubbing, extremities motor strength 5/5 Neurologic: PERRL, EOMI, accommodation nl, no face palsy, no dysarthria Psychiatric: A+Ox3, euthymic affect Lymphatic: no cervical or axillary lymphadenopathy Principal Diagnosis Mechanical fall Demand ischemia Discharge Exam Constitutional: WD/WN, vitals as above, NAD, sitting up in bed, pleasant, conversing easily Respiratory: normal respiratory effort, lungs clear to auscultation, no wheeze, rales, rhonchi. Normal insp/exp effort, no accessory muscle use Cardiovascular: RRR, no murmur, no edema Vessels: no JVD or carotid bruit Chest: normal inspection of chest Abdomen: normal bowel sounds, soft, nontender, no hepatosplenomegaly Musculoskeletal: no cyanosis or clubbing, extremities motor strength 5/5 Skin: no rashes, warm and dry normal turgor Neurologic: PERRL, EOMI, accommodation nl, no face palsy, no dysarthria CN's II- XI intact bilaterally and moves all extremities Psychiatric: A+Ox3, euthymic affect Discharge Data Allergies Allergy/AdvReac Type Severity Reaction Status Date / Time No Known Allergies Allergy Verified 07/23/23 21:22 Consultations 06/20/25 14:52 ED Decision to Admit Stat 06/20/25 16:40 Consult Cardiology Routine Ordered Studies 06/20/25 11:38 CT facial bones wo con Stat CT head/brain wo con Stat Hospital Course (1) Fall: (2) Elevated troponin: (3) Atrial fibrillation: Plan The patient is an 89-year-old male who presented to the ED on 06/20/2025 s/p mechanical fall found to have an elevated troponin Mechanical fall Elevated troponin Possible Demand Ischemia Presents after a mechanical fall in the shower Underwent imaging including CT head, face CT, lumbar spine x-ray and chest x-ray which did not show any acute finding EKG shows normal sinus rhythm; no ST or T wave changes EKG on admission showing normal sinus rhythm; no ST or T wave changes High sensitive troponin of 107 on admission; up trended to 393 and down trended Patient was admitted to telemetry floor; was started on heparin drip for possible NSTEMI. He underwent echocardiogram which showed normal EF; moderate concentric LVH. He did not have any chest pain or discomfort throughout the hospitalization. Patient was seen by cardiology; was given 1 dose of IV Lasix given congestion seen in the chest x-ray. Patient was evaluated by PT OT and was discharged home with instructions to follow-up with PCP. Please note the above document was generated using voice recognition software. It may contain grammatical, syntax or spelling errors. Any formal questions or concerns about the content, text or information contained within the body of this dictation should be directly addressed to the provider for clarification Total Time Total Time Spent Total Time Spent (In Minutes): 45 Total Time Includes: Examination of the Patient, Discharge Planning, Medication Reconciliation, Communication With Other Providers and Other Discharge Plan Discharge Items Patient Disposition: Home - Self-Care Reason For Visit: FALL, ELEVATED TROP Discharge Diagnosis: Mechanical fall Demand ischemia Condition on Discharge: Good Activity: Resume your previous activity Non-emergency contact: Primary Care Provider Call non-emergency contact if: you have any medication questions and your symptoms worsen Follow-up/Referrals: Patti Zuniga DO [Primary Care Provider] - Diet: Regular Addtl Attending Provider Instructions: You were admitted to the hospital due to a fall and elevation in the troponin level. You underwent evaluation by cardiology during the hospitalization and underwent echocardiogram which showed normal heart function. Please continue to take your medication as prescribed before. Pending Studies at Discharge: No Stand-Alone Forms: My [facility] [employer], Smoking Cessation Medications and DC Order Prescriptions: Continued atorvastatin 20 mg Tablet 20 mg PO DAILY aspirin 81 mg Tablet,Delayed Release (Dr/Ec) 81 mg PO DAILY Patient Comments: 06/20- otc unable to verify tamsulosin [Flomax] 0.4 mg Capsule 0 mg PO DAILY Patient Comments: 06/20- no fill history unable to verify metoprolol succinate 25 mg Tablet Extended Release 24 Hr 12.5 mg PO DAILY cholecalciferol (vitamin D3) [Vitamin D3] 25 mcg (1,000 unit) Capsule 25 mcg PO DAILY Patient Comments: 06/20- otc unable to verify duloxetine 30 mg Capsule,Delayed Release(Dr/Ec) 0 mg PO DAILY Patient Comments: last filled 08/07/24 90 day supply #90 pregabalin [Lyrica] 25 mg Capsule 0 mg PO HS Patient Comments: 06/20- no fill history unable to verify PreserVision AREDS-2 250-90-40-1 mg Capsule 1 tab PO QAM Patient Comments: 06/20- otc unable to verify finasteride 5 mg tablet 5 mg PO DAILY Eliquis 5 mg tablet 5 mg PO BID Discharge Orders: Discharge Order (Routine); Ordered 06/21/25 Ordered By: Neymar Stevens Admission Data Admit Date/Time: 06/20/25 14:55 Attending Provider: Neymar Stevens Admit Provider: Eliecer Caldwell Primary Care Provider: Patti Zuniga Other Providers: Eliecer Caldwell; Andrei Ramsey
--- NOTE | 2025-06-23 14:13 | Coding Query ---
CONGESTIVE HEART FAILURE To Promote full compliance with coding requirements relating to patient care, physician participation is requested in all cases of vacuum spindle sander uncertainty. Please assist us with the following questions. A diagnosis of Congestive Heart Failure is documented in the patient's medical record. To accurately code this diagnosis and to compare patient severity, we ask that you specify the type of heart failure by placing an X within the parenthesis (x). 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 Please check the appropriate box: ( ) Present on Admission ( ) Not Present On Admission ( ) Clinically undetermined Thank you Jonas SILVEIRA
== END 2025-06-21 15:33 | disposition home or self-care (01) | DRG 291 ==
LOC: ED 10:30 → SUATTDRO 14:55 → 2S 14:55